=== PATIENT | male | born 1970 | race Caucasian/White ===

== ENCOUNTER 2024-09-15 22:41 | Emergency (ER) | payer BC, OTHER ==
[2024-09-15 23:01] VITALS: BP 176/96; PULSE 73; RESP 19; TEMP 98.2; BMI 30.5
[2024-09-15] MEDS ORDERED: ACETAMINOPHEN INJECTION 100 ML ONE (23:58)
[2024-09-16] MEDS: ACETAMINOPHEN 1000 MG/100 ML BAG IVPB ONE (00:13)
[2024-09-16 00:20] LABS: ABSOLUTE IMMATURE GRANULOCYTES 0.04 x10^3/uL (0.0-0.031); BASOPHILS # 0.04 x10^3/uL (0.01-0.08); EOSINOPHIL % 3.9 % (0.8-7.0); EOSINOPHILS # 0.35 x10^3/uL (0.04-0.54); MCHC 32.7 g/dl (32.3-36.5); MEAN CELL VOLUME 89.0 fl (79.0-92.2); MEAN PLT VOLUME 10.6 fl (9.4-12.4); MONOCYTE # 0.77 x10^3/uL (0.30-0.82); MONOCYTE % 8.6 % (5.3-12.2); RDW 13.2 % (12.2-16.1)
[2024-09-16 00:40] LABS: CO2 28.0 mmol/L (21-32); GLUCOSE,RANDOM 88.0 mg/dL (74-106)
[2024-09-16 00:43] LABS: CREATININE 0.9 mg/dL (0.55-1.3); SGOT/AST 21.0 U/L (15-37); SGPT/ALT 25.0 U/L (13-61)
[2024-09-16 00:45] LABS: TOT PROT 7.3 g/dl (6.4-8.2)
[2024-09-16 00:46] LABS: ALK PHOS 66.0 U/L (45-117)
[2024-09-16] MEDS: MINERAL OIL ENEMA 133 ML ENEMA RC ONE (01:26)
[2024-09-16] MEDS: CEPHALEXIN MONOHYDRATE 500 MG CAPSULE (UD) PO ONE (01:27)
[2024-09-16] MEDS ORDERED: CEPHALEXIN MONOHYDRATE 500 MG CAPSULE (UD) ONE (01:27)
[2024-09-16 13:07] LABS: HIV INTERPRETATION NEGATIVE (NEGATIVE)
[2024-09-16 13:13] LABS: HCV DIAGNOSTIC IN-HOUSE W/RFLX NON-REACTIVE (NONREACTIVE)
== END 2024-09-16 01:52 | disposition home or self-care (01) ==
LOC: JER 22:41
PROC: 3E033NZ Introduction of Analgesics, Hypnotics, Sedatives into Peripheral Vein, Percutaneous Approach (ICD-10-PCS; principal; 2024-09-16)
DX: K59.00 Constipation, unspecified (principal); R20.2 Paresthesia of skin; R68.83 Chills (without fever)
CPT/HCPCS: 36415; 74018-TC-FY; 80053; 85025; 86803; 87389; 99284-25